=== PATIENT | female | born 1965 | race Caucasian/White ===

== ENCOUNTER 2016-03-17 13:52 | Outpatient (CLI) | payer OTHER | END 2016-03-17 13:53 | disposition home or self-care (01) | DX: G47.10 Hypersomnia, unspecified (principal); G47.8 Other sleep disorders; R06.83 Snoring ==

== ENCOUNTER 2016-04-09 21:22 | Outpatient (CLI) | payer OTHER | END 2016-04-09 21:23 | disposition home or self-care (01) | DX: G47.10 Hypersomnia, unspecified (principal) ==

== ENCOUNTER 2016-05-05 14:02 | Outpatient (CLI) | payer OTHER | END 2016-05-05 14:03 | disposition home or self-care (01) | DX: G47.10 Hypersomnia, unspecified (principal) ==